=== PATIENT | female | born 1945 | race Caucasian/White ===

== ENCOUNTER 2019-07-08 12:55 | Observation (INO) | payer MEDICARE ==
[2019-07-08] MEDS ORDERED: ASPIRIN 81 MG PO STA (14:11)
[2019-07-08] MEDS ORDERED: SODIUM CHLORIDE 0.9% 500 ML 500 ML IV STA (14:11)
[2019-07-08] MEDS ORDERED: methylPREDNISolone SOD SUCCI 125 MG/2 ML VIAL IV STA (14:11)
[2019-07-08] MEDS ORDERED: FAMOTIDINE 20 MG/2 ML VIAL IV STA (14:12)
--- NOTE | 2019-07-08 14:16 | ED ---
General Adult HPI <Ronnell Martinez - Last Filed: 07/08/19 16:31> - General Source: EMS, RN notes reviewed, old records reviewed Mode of arrival: EMS Limitations: no limitations <Jason Caballero - Last Filed: 07/08/19 16:34> - General Chief complaint: Recheck/Abnormal Lab/Rx Stated complaint: Allergic Reaction Time Seen by Provider: 07/08/19 14:02 - History of Present Illness Initial comments: 73-year-old female patient presents ED chief complaint of possible ALLERGIC reaction secondary to bee sting. Patient reports that approximately 12:00 she was washing windows and she fell a bee pressure against her lateral left lower extremity which then stung her. Patient reports that she felt a lot of pain afterwards. Patient reports that she went over and sat on the bench and had a reported syncopal episode -unknown duration. Patient was then seen by her states that for a period of a few minutes patient was only minimally responsive. called EMS, where they transported her to ED, and administered patient Benadryl, Zofran, fluid bolus. Patient reports that she currently feels nauseous, feels chest tightness, feels lethargic. Patient denies any pain anywhere with exception of stinging from bee sting. Patient denies any chest pain, denies any prior cardiac history. Patient states that she has never had a stress test. Systemic: Pt denies fatigue, fever/chills, rash. Pt denies weakness, night sweats, weight loss. Neuro: Pt denies headache, visual disturbances, syncope or pre-syncope. HEENT: Pt denies ocular discharge or irritation, otalgia, rhinorrhea, pharyngitis or notable lymphadenopathy. Cardiopulmonary: Pt denies chest pain, SOB, heart palpitations, dyspnea on exertion. Abdominal/GI: Pt denies abdominal pain, n/v/d. : Pt denies dysuria, burning w/ urination, frequency/urgency. Denies new onset urinary or bowel incontinence. MSK: Pt denies myalgia, loss of strength or function in extremities. Neuro: Pt denies new onset weakness, paresthesias. (Jason Caballero) - Related Data Home Medications Medication Instructions Recorded Confirmed Ketorolac Tromethamine [Acular LS 1 drop LEFT EYE TID 07/08/19 07/08/19 0.4%] Simvastatin [Zocor] 40 mg PO HS 07/08/19 07/08/19 Allergies Allergy/AdvReac Type Severity Reaction Status Date / Time No Known Allergies Allergy Verified 07/08/19 13:17 Review of Systems ROS Other: All systems not noted in ROS Statement are negative. <Ronnell Martinez - Last Filed: 07/08/19 16:31> ROS Other: All systems not noted in ROS Statement are negative. <Jason Caballero - Last Filed: 07/08/19 16:34> ROS Statement: Those systems with pertinent positive or pertinent negative responses have been documented in the HPI. Past Medical History Past Medical History: Hyperlipidemia Additional Past Medical History / Comment(s): left torn minicus, possible colitis History of Any Multi-Drug Resistant Organisms: None Reported Past Surgical History: Orthopedic Surgery, Tubal Ligation Additional Past Surgical History / Comment(s): cataracts Past Psychological History: No Psychological Hx Reported Smoking Status: Never smoker Past Alcohol Use History: None Reported Past Drug Use History: None Reported <Jason Caballero - Last Filed: 07/08/19 16:34> General Exam Limitations: no limitations <Jason Caballero - Last Filed: 07/08/19 16:34> - General Exam Comments Initial Comments: Constitutional: NAD, AOX3, Pt has pleasant affect. HEENT: NC/AT, trachea midline, neck supple, no lymphadenopathy. Posterior pharynx non erythematous, without exudates. External ears appear normal, without discharge. Mucous membranes moist. Eyes PERRLA, EOM intact. There is no scleral icterus. No pallor noted. Cardiopulmonary: RRR, no murmurs, rubs or gallops, no JVD noted. Lungs CTAB in anterior and posterior rivera. No peripheral edema. Abdominal exam: Abdomen soft and non-distended. Abdomen non-tender to palpation in all 4 quadrants. Bowel sounds active in LLQ. No hepatosplenomegaly. No ecchymosis Neuro: CN II-XII intact. No nuchal rigidity. No raccon eyes, no melo sign, no hemotympanum. No cervical spinal tenderness. NIH 0. MSK: No posterior calf tenderness bilaterally, homans sign negative bilaterally. Posterior tibialis and radial pulse +2 bilaterally. Sensation intact in upper and lower extremities. Full active ROM in upper and lower extremities, 5/5 stregnth. Derm: Urticaria noted in paralumbar region, localized erythema around reported sting on lateral left lower extremity. Improved with steroids, pepcid. (Jason Caballero) Course <Ronnell Martinez - Last Filed: 07/08/19 16:31> Vital Signs 07/08/19 07/08/19 07/08/19 12:59 13:04 14:00 Temperature 97.9 F Pulse Rate 68 68 68 Respiratory 16 Rate Blood Pressure 109/59 O2 Sat by Pulse 97 96 96 Oximetry 07/08/19 07/08/19 15:00 16:00 Temperature Pulse Rate 68 68 Respiratory 15 15 Rate Blood Pressure 111/60 O2 Sat by Pulse 96 96 Oximetry - Reevaluation(s) Reevaluation #1: 07/08/19 16:31 PA supervision: I pursued evaluation of this case and did discuss findings with the patient family as well as Dr. Spence who is agreed to accept the patient for admission. Patient did have a bee sting and later syncopal episode and chest pain it was prolonged. Patient will be evaluated in the hospital cardiology will be consulted. U agree with the assessment and plan (Ronnell Martinez) Medical Decision Making - Lab Data Result diagrams: 07/08/19 14:45 07/08/19 14:45 <Ronnell Martinez - Last Filed: 07/08/19 16:31> - Lab Data Result diagrams: 07/08/19 14:45 07/08/19 14:45 <Jason Caballero - Last Filed: 07/08/19 16:34> - Medical Decision Making 73-year-old female patient presents ED chief complaint of possible ALLERGIC reaction secondary to bee sting. Patient reports that approximately 12:00 she was washing windows and she fell a bee pressure against her lateral left lower extremity which then stung her. Patient reports that she felt a lot of pain afterwards. Patient reports that she went over and sat on the bench and had a reported syncopal episode -unknown duration. Patient was then seen by her states that for a period of a few minutes patient was only minimally responsive. called EMS, where they transported her to ED, and administered patient Benadryl, Zofran, fluid bolus. Patient reports that she currently feels nauseous, feels chest tightness, feels lethargic. Patient denies any pain anywhere with exception of stinging from bee sting. Patient denies any chest pain, denies any prior cardiac history. Patient states that she has never had a stress test. Patient's vital signs stable, afebrile. Physical exam displayed: CN II-XII intact. No nuchal rigidity. No raccon eyes, no melo sign, no hemotympanum. No cervical spinal tenderness. NIH 0. Urticaria noted in paralumbar region, localized erythema around reported sting on lateral left lower extremity. Improved with steroids, pepcid. Laboratory investigations revealed mild leukocytosis, otherwise noncompressive. Troponin negative. EKG not concerning for acute ischemia. CT brain C-spine, chest x-ray did not display acute process. Chest tightness resolved without intervention, lasted approximately 2 hours. Patient will be admitted for syncopal episode, ACS rule out. Case discussed with Dr. Martinez. (Jason Caballero) - Lab Data Lab Results 07/08/19 07/08/19 07/08/19 Range/Units 14:45 14:45 14:45 WBC 12.3 H (3.8-10.6) k/uL RBC 4.47 (3.80-5.40) m/uL Hgb 14.3 (11.4-16.0) gm/dL Hct 42.2 (34.0-46.0) % MCV 94.6 (80.0-100.0) fL MCH 32.0 (25.0-35.0) pg MCHC 33.9 (31.0-37.0) g/dL RDW 13.5 (11.5-15.5) % Plt Count 205 (150-450) k/uL Neutrophils % 85 % Lymphocytes % 9 % Monocytes % 5 % Eosinophils % 0 % Basophils % 0 % Neutrophils # 10.5 H (1.3-7.7) k/uL Lymphocytes # 1.1 (1.0-4.8) k/uL Monocytes # 0.6 (0-1.0) k/uL Eosinophils # 0.0 (0-0.7) k/uL Basophils # 0.0 (0-0.2) k/uL PT 10.0 (9.0-12.0) sec INR 0.9 (<1.2) APTT 18.2 L (22.0-30.0) sec Sodium 141 (137-145) mmol/L Potassium 3.8 (3.5-5.1) mmol/L Chloride 108 H (98-107) mmol/L Carbon Dioxide 25 (22-30) mmol/L Anion Gap 8 mmol/L BUN 17 (7-17) mg/dL Creatinine 0.90 (0.52-1.04) mg/dL Est GFR (CKD-EPI)AfAm 74 (>60 ml/min/1.73 sqM) Est GFR (CKD-EPI)NonAf 64 (>60 ml/min/1.73 sqM) Glucose 103 H (74-99) mg/dL Calcium 9.2 (8.4-10.2) mg/dL Magnesium 2.1 (1.6-2.3) mg/dL Total Bilirubin 0.4 (0.2-1.3) mg/dL AST 19 (14-36) U/L ALT 23 (9-52) U/L Alkaline Phosphatase 75 (38-126) U/L Troponin I (0.000-0.034) ng/mL Total Protein 6.4 (6.3-8.2) g/dL Albumin 3.9 (3.5-5.0) g/dL 07/08/19 Range/Units 14:45 WBC (3.8-10.6) k/uL RBC (3.80-5.40) m/uL Hgb (11.4-16.0) gm/dL Hct (34.0-46.0) % MCV (80.0-100.0) fL MCH (25.0-35.0) pg MCHC (31.0-37.0) g/dL RDW (11.5-15.5) % Plt Count (150-450) k/uL Neutrophils % % Lymphocytes % % Monocytes % % Eosinophils % % Basophils % % Neutrophils # (1.3-7.7) k/uL Lymphocytes # (1.0-4.8) k/uL Monocytes # (0-1.0) k/uL Eosinophils # (0-0.7) k/uL Basophils # (0-0.2) k/uL PT (9.0-12.0) sec INR (<1.2) APTT (22.0-30.0) sec Sodium (137-145) mmol/L Potassium (3.5-5.1) mmol/L Chloride (98-107) mmol/L Carbon Dioxide (22-30) mmol/L Anion Gap mmol/L BUN (7-17) mg/dL Creatinine (0.52-1.04) mg/dL Est GFR (CKD-EPI)AfAm (>60 ml/min/1.73 sqM) Est GFR (CKD-EPI)NonAf (>60 ml/min/1.73 sqM) Glucose (74-99) mg/dL Calcium (8.4-10.2) mg/dL Magnesium (1.6-2.3) mg/dL Total Bilirubin (0.2-1.3) mg/dL AST (14-36) U/L ALT (9-52) U/L Alkaline Phosphatase (38-126) U/L Troponin I <0.012 (0.000-0.034) ng/mL Total Protein (6.3-8.2) g/dL Albumin (3.5-5.0) g/dL Disposition <Ronnell Martinez - Last Filed: 07/08/19 16:31> Is patient prescribed a controlled substance at d/c from ED?: No <Jason Caballero - Last Filed: 07/08/19 16:34> Clinical Impression: Syncopal episodes, Chest pain Disposition: ADMITTED IP TO THIS HOSP Condition: Serious Referrals: Milton Cordoba DO [Primary Care Provider] - 1-2 days
--- NOTE | 2019-07-08 14:44 | XR ---
EXAMINATION TYPE: XR chest 2V DATE OF EXAM: 07/08/2019 COMPARISON: NONE TECHNIQUE: PA and lateral views submitted. HISTORY: Chest pain FINDINGS: The lungs are clear and there is no pneumothorax, pleural effusion, or focal pneumonia. Biapical pl eural thickening. No overt failure. Hypertrophic and degenerative change of the spine. Diffuse osteop enia. IMPRESSION: 1. Biapical pleural thickening greater on the right with no acute infiltrate or overt failure.
--- NOTE | 2019-07-08 14:47 | CT ---
EXAMINATION TYPE: CT brain wo con DATE OF EXAM: 07/08/2019 COMPARISON: None HISTORY: Weakness, dizziness and fatigue CT DLP: 1113.4 mGycm Automated exposure control for dose reduction was used. FINDINGS: Osseous calvarium intact. Ventricular system midline. Mild generalized degenerative change. Partially empty sella turcica. No midline shift or mass effect. No acute intracranial hemorrhage. Mild changes of chronic sinusitis. IMPRESSION: NO ACUTE HEMORRHAGE OR MASS EFFECT. IF THERE IS CONCERN FOR ACUTE ISCHEMIA CORRELATE WITH MRI CLIN ICALLY WARRANTED
[2019-07-08 15:11] LABS: Basophils % (A) 0 %; Eosinophils % (A) 0 %; HCT 42.2 % (34.0-46.0); HGB 14.3 gm/dL (11.4-16.0); Lymphocytes # (A) 1.1 k/uL (1.0-4.8); Lymphocytes % (A) 9 %; MCHC 33.9 g/dL (31.0-37.0); MCV 94.6 fL (80.0-100.0); Mean Platelet Volume 7.8; Monocytes # (A) 0.6 k/uL (0-1.0); Monocytes % (A) 5 %; Neutrophils # (A) 10.5 k/uL (1.3-7.7); Neutrophils % (A) 85 %; Platelet Count 205 k/uL (150-450); RBC 4.47 m/uL (3.80-5.40); RDW 13.5 % (11.5-15.5); WBC 12.3 k/uL (3.8-10.6)
[2019-07-08 15:20] LABS: Albumin 3.9 g/dL (3.5-5.0); Calcium 9.2 mg/dL (8.4-10.2); Magnesium 2.1 mg/dL (1.6-2.3); Potassium 3.8 mmol/L (3.5-5.1); Total Bilirubin 0.4 mg/dL (0.2-1.3); Total Protein 6.4 g/dL (6.3-8.2)
[2019-07-08 15:36] LABS: INR 0.9 (<1.2)
[2019-07-08 15:37] LABS: Partial Thromboplastin Time 18.2 sec (22.0-30.0)
[2019-07-08] MEDS ORDERED: NITROGLYCERIN SL TABS 0.4 MG TAB SUBLINGUAL PRN (16:27)
--- NOTE | 2019-07-08 17:20 | ED ---
Medical Decision Making - Lab Data Result diagrams: 07/08/19 14:45 07/08/19 14:45 Lab Results 07/08/19 07/08/19 07/08/19 Range/Units 14:45 14:45 14:45 WBC 12.3 H (3.8-10.6) k/uL RBC 4.47 (3.80-5.40) m/uL Hgb 14.3 (11.4-16.0) gm/dL Hct 42.2 (34.0-46.0) % MCV 94.6 (80.0-100.0) fL MCH 32.0 (25.0-35.0) pg MCHC 33.9 (31.0-37.0) g/dL RDW 13.5 (11.5-15.5) % Plt Count 205 (150-450) k/uL Neutrophils % 85 % Lymphocytes % 9 % Monocytes % 5 % Eosinophils % 0 % Basophils % 0 % Neutrophils # 10.5 H (1.3-7.7) k/uL Lymphocytes # 1.1 (1.0-4.8) k/uL Monocytes # 0.6 (0-1.0) k/uL Eosinophils # 0.0 (0-0.7) k/uL Basophils # 0.0 (0-0.2) k/uL PT 10.0 (9.0-12.0) sec INR 0.9 (<1.2) APTT 18.2 L (22.0-30.0) sec Sodium 141 (137-145) mmol/L Potassium 3.8 (3.5-5.1) mmol/L Chloride 108 H (98-107) mmol/L Carbon Dioxide 25 (22-30) mmol/L Anion Gap 8 mmol/L BUN 17 (7-17) mg/dL Creatinine 0.90 (0.52-1.04) mg/dL Est GFR (CKD-EPI)AfAm 74 (>60 ml/min/1.73 sqM) Est GFR (CKD-EPI)NonAf 64 (>60 ml/min/1.73 sqM) Glucose 103 H (74-99) mg/dL Calcium 9.2 (8.4-10.2) mg/dL Magnesium 2.1 (1.6-2.3) mg/dL Total Bilirubin 0.4 (0.2-1.3) mg/dL AST 19 (14-36) U/L ALT 23 (9-52) U/L Alkaline Phosphatase 75 (38-126) U/L Troponin I (0.000-0.034) ng/mL Total Protein 6.4 (6.3-8.2) g/dL Albumin 3.9 (3.5-5.0) g/dL 07/08/19 Range/Units 14:45 WBC (3.8-10.6) k/uL RBC (3.80-5.40) m/uL Hgb (11.4-16.0) gm/dL Hct (34.0-46.0) % MCV (80.0-100.0) fL MCH (25.0-35.0) pg MCHC (31.0-37.0) g/dL RDW (11.5-15.5) % Plt Count (150-450) k/uL Neutrophils % % Lymphocytes % % Monocytes % % Eosinophils % % Basophils % % Neutrophils # (1.3-7.7) k/uL Lymphocytes # (1.0-4.8) k/uL Monocytes # (0-1.0) k/uL Eosinophils # (0-0.7) k/uL Basophils # (0-0.2) k/uL PT (9.0-12.0) sec INR (<1.2) APTT (22.0-30.0) sec Sodium (137-145) mmol/L Potassium (3.5-5.1) mmol/L Chloride (98-107) mmol/L Carbon Dioxide (22-30) mmol/L Anion Gap mmol/L BUN (7-17) mg/dL Creatinine (0.52-1.04) mg/dL Est GFR (CKD-EPI)AfAm (>60 ml/min/1.73 sqM) Est GFR (CKD-EPI)NonAf (>60 ml/min/1.73 sqM) Glucose (74-99) mg/dL Calcium (8.4-10.2) mg/dL Magnesium (1.6-2.3) mg/dL Total Bilirubin (0.2-1.3) mg/dL AST (14-36) U/L ALT (9-52) U/L Alkaline Phosphatase (38-126) U/L Troponin I <0.012 (0.000-0.034) ng/mL Total Protein (6.3-8.2) g/dL Albumin (3.5-5.0) g/dL - EKG Data -: EKG Interpreted by Me (and Dr. Martinez ) EKG Comments: Ventricular rate 61, MA interval 148, QRS 86, QT/QTc 444/446. Normal sinus rhythm, normal EKG, no concern for acute ischemia. Disposition Clinical Impression: Syncopal episodes, Chest pain Disposition: ADMITTED IP TO THIS HOSP Condition: Serious Is patient prescribed a controlled substance at d/c from ED?: No Referrals: Milton Cordoba DO [Primary Care Provider] - 1-2 days
[2019-07-09 03:26] LABS: Cholesterol 127 mg/dL (<200); HDL Cholesterol 52 mg/dL (40-60); LDL Cholesterol,Calculated 66 mg/dL (0-99); Triglycerides 43 mg/dL (<150)
--- NOTE | 2019-07-09 08:26 | US ---
EXAMINATION TYPE: US carotid duplex BILAT DATE OF EXAM: 07/09/2019 COMPARISON: NONE CLINICAL HISTORY: Pain. Patient states having a reaction to a bee sting with chest tightness, no HTN, no hx of TIA EXAM MEASUREMENTS: RIGHT: Peak Systolic Velocity (PSV) cm/sec ----- Right CCA: 88.6 ----- Right ICA: 84.2 ----- Right ECA: 101.6 ICA/CCA ratio: 1.0 RIGHT: End Diastole cm/sec ----- Right CCA: 17.1 ----- Right ICA: 27.0 ----- Right ECA: 0.0 LEFT: Peak Systolic Velocity (PSV) cm/sec ----- Left CCA: 100.0 ----- Left ICA: 77.9 ----- Left ECA: 93.5 ICA/CCA ratio: 0.8 LEFT: End Diastole cm/sec ----- Left CCA: 23.3 ----- Left ICA: 29.6 ----- Left ECA: 11.1 VERTEBRALS (direction of flow): Right Vertebral: Antegrade Left Vertebral: Antegrade Rhythm: Normal Grayscale images show no significant focal plaque at carotid bulb level bilaterally. Velocity measure ments and ratios in the visualized portions of both internal carotid arteries is within normal limits . IMPRESSION: No hemodynamically significant stenosis is seen in either internal carotid artery. Criteria for Assigning % of Stenosis / Diameter reduction (Estimation based on the indirect measurements of the internal carotid artery velocities (ICA PSV). 1. Normal (no stenosis)=ICA PSV < 125 cm/s: ratio < 2.0: ICA EDV<40 cm/s. 2. Less than 50% stenosis=ICA PSV < 125 cm/s: ratio < 2.0: ICA EDV<40 cm/s. 3. 50 to 69% stenosis=ICA PSV of 125 to 230 cm/s: ration 2.0 ? 4.0: ICA EDV 40-100 cm/s. 4. Greater than 70% stenosis to near occlusion= ICA PSV > 230 cm/s: ratio > 4.0: ICA EDV > 100 cm/s. 5. Near occlusion= ICA PSV velocities may be low or undetectable: variable ratio and ICA EDV. 6. Total occlusion=unable to detect flow.
[2019-07-09] MEDS ORDERED: ASPIRIN 325 MG TAB PO SCH (09:00)
--- NOTE | 2019-07-09 10:38 | CT ---
EXAMINATION TYPE: CT angio chest DATE OF EXAM: 07/09/2019 COMPARISON: Chest x-ray from yesterday. HISTORY: Chest tightness, elevated d dimer, syncopal episode post bee sting CT DLP: 300.2 mGycm. Automated Exposure Control for Dose Reduction was Utilized. CONTRAST: CTA scan of the thorax is performed with IV Contrast, patient injected with 69 mL of Isovue 370, pulm onary embolism protocol. MIP Images are created on CT scanner and reviewed. FINDINGS: LUNGS: Mild to moderate biapical pleural/parenchymal scarring is redemonstrated. There is dependent a telectasis bilateral lower lobes. No suspicious focal consolidation is seen. No pleural effusion or p neumothorax is noted. There is fat density 9 mm right basilar nodule axial image 98 presumed benign. MEDIASTINUM: There is satisfactory enhancement of the pulmonary artery and its branches, there is no CT evidence for pulmonary embolism. There is prominent prevascular 10 x 10 mm lymph node axial image 38. No definitive greater than 1 cm lymph nodes. Prominent but subcentimeter 9 x 6 mm lymph node ant erior to the main pulmonary artery axial image 62 is noted . Prominent left hilar lymph node image 64 is noted. No cardiomegaly or pericardial effusion is seen. OTHER: Small hiatal hernia is present. [id number] multilevel spurring in the thoracic spine is seen. IMPRESSION: No CT evidence for acute pulmonary embolism. No suspicious acute pulmonary process.
[2019-07-09] MEDS ORDERED: predniSONE 20 MG TAB PO SCH (11:30)
[2019-07-09] MEDS ORDERED: SODIUM CHLORIDE 0.9% 1,000 ML IV SCH (11:30)
[2019-07-09 12:26] VITALS: RESP 17
--- NOTE | 2019-07-09 13:40 | P.CRDCN ---
History of Present Illness History of present illness: This is a pleasant 73-year-old female with past medical history significant for dyslipidemia maintained on atorvastatin. She denies history of hypertension, diabetes mellitus, coronary artery disease and does not follow with a organizational research consultant for any reason. We have been asked to see her in consultation secondary to a syncopal spell. She states yesterday around 12:30 in the afternoon she was stung on the left thigh by a bee while she was outside cleaning windows. She went in the house to put some ice on the area. She was walking back outside finished washing her windows when she started feeling acutely dizzy. She sat down on a bench to catch her bearings and apparently passed out. She does not recall what happened only that her found her passed out on the bench. She denies having any symptoms of chest discomfort, shortness of breath, palpitations, nausea, vomiting or diaphoresis. In route to the hospital she did have one episode of vomiting. While she was in the emergency department she started to develop a generalized rash around her body described as red and very itchy. Determined to be hives. During that episode she had a tight sensation in the midsternal region. The rash, itching and chest discomfort lasted for a couple of hours and ultimately subsided after receiving Benadryl and IV Solu-Medrol. She is seen and examined resting comfortably in bed in no acute distress. She denies any active symptoms of chest discomfort. There is been no further syncope. EKG reveals sinus mechanism with no acute ST-T wave abnormalities noted. Chest x-ray is negative for an acute cardiopulmonary process with evidence of pleural thickening. CT angios chest negative for pulmonary embolism. Laboratory data reviewed, WBC 12.3, hemoglobin 14.3, d-dimer 3.78, sodium 141, potassium 3.8, creatinine 0.9, magnesium 2.1, cardiac enzymes negative 3, LDL 66. Current cardiac medications include atorvastatin 40 mg daily. At the time of my exam: CONSTITUTIONAL: Denies fever. Denies chills. EYES: Denies blurred vision. Denies vision changes. Denies eye pain. EARS, NOSE, MOUTH & THROAT: Denies headache. Denies sore throat. Denies ear pain. CARDIOVASCULAR: Denies chest pain. Denies shortness of breath. Denies orthopnea. Denies PND. Denies palpitations. RESPIRATORY: Denies cough. GASTROINTESTINAL: Denies abdominal pain. Denies diarrhea. Denies constipation. Denies nausea. Denies vomiting. MUSCULOSKELETAL: Denies myalgias. INTEGUMENTARY: Denies pruitis. Denies rash. NEUROLOGIC: Denies numbness. Denies tingling. Denies weakness. PSYCHIATRIC: Denies anxiety. Denies depression. ENDOCRINE: Denies fatigue. Denies weight change. Denies polydipsia. Denies polyurina. GENITOURINARY: Denies burning, hematuria or urgency with micturation. HEMATOLOGIC: Denies history of anemia. Denies bleeding. Blood pressure 93/49 heart rate 71 afebrile maintaining oxygen saturation on room air GENERAL: This is a 73-year-old female in no apparent distress at the time of my examination. HEENT: Head is atraumatic, normocephalic. Pupils are equal, round. Sclerae anicteric. Conjunctivae are clear. Mucous membranes of the mouth are moist. Neck is supple. There is no jugular venous distention. No carotid bruit is heard. LUNGS: Clear to auscultation no wheezes, rales or rhonchi. No chest wall tenderness is noted on palpation or with deep breathing. HEART: Regular rate and rhythm without murmurs, rubs or gallops. S1 and S2 heard. ABDOMEN: Soft, nontender. Bowel sounds are heard. No organomegaly noted. EXTREMITIES: No evidence of peripheral edema and no calf tenderness noted. Trace area of erythema noted to the left lateral knee. VASCULAR: Radial and dorsalis pedis pulses palpated, no evidence of clubbing. NEUROLOGIC: Patient is awake, alert and oriented x3. ASSESSMENT Syncope ALLERGIC reaction secondary to bee sting Dyslipidemia PLAN An acute coronary event has been ruled out. Obtain 2-D echocardiogram and Doppler study to assess cardiac structure and function. Initiate and prednisone 20 mg twice a day, dose to be tapered discharge. Ongoing telemetry monitoring for another 24 hours to assess for an acute arrhythmia. Thank you kindly for this consultation. Nurse Practitioner note has been reviewed, I agree with a documented findings and plan of care. Patient was seen and examined. Past Medical History Past Medical History: Hyperlipidemia Additional Past Medical History / Comment(s): left torn minicus, possible colitis History of Any Multi-Drug Resistant Organisms: None Reported Past Surgical History: Orthopedic Surgery, Tubal Ligation Additional Past Surgical History / Comment(s): cataracts Past Anesthesia/Blood Transfusion Reactions: Previous Problems w/ Anesthesia Additional Past Anesthesia/Blood Transfusion Reaction / Comment(s): low blood pressure Past Psychological History: No Psychological Hx Reported Smoking Status: Never smoker Past Alcohol Use History: None Reported Past Drug Use History: None Reported Medications and Allergies Home Medications Medication Instructions Recorded Confirmed Type Ketorolac Tromethamine [Acular LS 1 drop LEFT EYE TID 07/08/19 07/08/19 History 0.4%] Simvastatin [Zocor] 40 mg PO HS 07/08/19 07/08/19 History Allergies Allergy/AdvReac Type Severity Reaction Status Date / Time No Known Allergies Allergy Verified 07/08/19 20:57 Physical Exam Vitals: Vital Signs Temp Pulse Pulse Resp BP BP Pulse Ox 07/09/19 07:42 98 F 65 18 96/60 98 07/09/19 04:15 98.4 F 66 18 91/56 98 07/09/19 03:29 18 07/08/19 23:21 98.4 F 77 18 97/57 97 07/08/19 20:00 98.3 F 69 18 101/50 94 L 07/08/19 19:54 87 14 126/58 98 07/08/19 19:48 88 14 126/58 96 07/08/19 16:00 68 15 111/60 96 07/08/19 15:00 68 15 96 07/08/19 14:00 68 96 07/08/19 13:04 68 96 07/08/19 12:59 97.9 F 68 16 109/59 97 Intake and Output 07/08/19 07/09/19 07/09/19 22:59 06:59 14:59 Intake Total 0 Balance 0 Intake: Oral 0 Results 07/08/19 14:45 07/08/19 14:45 Cardiac Enzymes 07/08/19 07/08/19 07/08/19 Range/Units 14:45 14:45 20:35 AST 19 (14-36) U/L Troponin I <0.012 <0.012 (0.000-0.034) ng/mL 07/09/19 Range/Units 02:58 AST (14-36) U/L Troponin I <0.012 (0.000-0.034) ng/mL Coagulation 07/08/19 Range/Units 14:45 PT 10.0 (9.0-12.0) sec APTT 18.2 L (22.0-30.0) sec Lipids 07/09/19 Range/Units 02:58 Triglycerides 43 (<150) mg/dL Cholesterol 127 (<200) mg/dL HDL Cholesterol 52 (40-60) mg/dL CBC 07/08/19 Range/Units 14:45 WBC 12.3 H (3.8-10.6) k/uL RBC 4.47 (3.80-5.40) m/uL Hgb 14.3 (11.4-16.0) gm/dL Hct 42.2 (34.0-46.0) % Plt Count 205 (150-450) k/uL Comprehensive Metabolic Panel 07/08/19 Range/Units 14:45 Sodium 141 (137-145) mmol/L Potassium 3.8 (3.5-5.1) mmol/L Chloride 108 H (98-107) mmol/L Carbon Dioxide 25 (22-30) mmol/L BUN 17 (7-17) mg/dL Creatinine 0.90 (0.52-1.04) mg/dL Glucose 103 H (74-99) mg/dL Calcium 9.2 (8.4-10.2) mg/dL AST 19 (14-36) U/L ALT 23 (9-52) U/L Alkaline Phosphatase 75 (38-126) U/L Total Protein 6.4 (6.3-8.2) g/dL Albumin 3.9 (3.5-5.0) g/dL Current Medications Generic Name Dose Route Start Last Admin Trade Name Inna PRN Reason Stop Dose Admin Aspirin 325 mg 07/09/19 09:00 Aspirin PO DAILY SERENE Nitroglycerin 0.4 mg 07/08/19 16:27 Nitrostat SUBLINGUAL Q5M PRN Chest Pain Intake and Output 07/08/19 07/09/19 07/09/19 22:59 06:59 14:59 Intake Total 0 Balance 0 Intake: Oral 0 07/08/19 14:45 07/08/19 14:45
[2019-07-09] MEDS: KETOROLAC 0.5% OPHTH DROPS 5 ML BTL LEFT EYE SCH ×2 (13:48→18:13)
--- NOTE | 2019-07-09 15:00 | ECHOF ---
Referral Reason:chest pain MEASUREMENTS -------- HEIGHT: 165.1 cm WEIGHT: 75.7 kg BP: 91/56 RVIDd: 2.8 cm (< 3.3) IVSd: 1.1 cm (0.6 - 1.1) LVIDd: 4.1 cm (3.9 - 5.3) LVPWd: 1.0 cm (0.6 - 1.1) IVSs: 1.8 cm LVIDs: 2.4 cm LVPWs: 1.4 cm LA Diam: 3.3 cm (2.7 - 3.8) LAESV Index (A-L): 17.65 ml/m Ao Diam: 2.9 cm (2.0 - 3.7) AV Cusp: 2.2 cm (1.5 - 2.6) MV EXCURSION: 10.716 mm (> 18.000) MV EF SLOPE: 59 mm/s (70 - 150) EPSS: 0.5 cm MV E Sebastian: 0.85 m/s MV DecT: 265 ms MV A Sebastian: 0.87 m/s MV E/A Ratio: 0.98 RAP: 5.00 mmHg RVSP: 24.18 mmHg FINDINGS -------- Sinus rhythm. This was a technically good study. The left ventricular size is normal. There is borderline concentric left ventricular hypertrophy. Overall left ventricular systolic function is normal with, an EF between 60 - 65 %. The right ventricle is normal in size. The left atrial size is normal. The right atrium is normal in size. Interatrial and interventricular septum intact. The aortic valve is trileaflet and appears structurally normal. Trace to mild aortic regurgitation. Mild mitral regurgitation is present. Mild tricuspid regurgitation present. Right ventricular systolic pressure is normal at < 35 mmHg. Trace/mild (physiologic) pulmonic regurgitation. The aortic root size is normal. Normal inferior vena cava with normal inspiratory collapse consistent with estimated right atrial pre ssure of 5 mmHg. There is no pericardial effusion. CONCLUSIONS -------- 1. Sinus rhythm. 2. This was a technically good study. 3. The left ventricular size is normal. 4. There is borderline concentric left ventricular hypertrophy. 5. Overall left ventricular systolic function is normal with, an EF between 60 - 65 %. 6. The right ventricle is normal in size. 7. The left atrial size is normal. 8. The right atrium is normal in size. 9. Interatrial and interventricular septum intact. 10. The aortic valve is trileaflet and appears structurally normal. 11. Trace to mild aortic regurgitation. 12. Mild mitral regurgitation is present. 13. Mild tricuspid regurgitation present. 14. Right ventricular systolic pressure is normal at < 35 mmHg. 15. Trace/mild (physiologic) pulmonic regurgitation. 16. The aortic root size is normal. 17. Normal inferior vena cava with normal inspiratory collapse consistent with estimated right atrial pressure of 5 mmHg. 18. There is no pericardial effusion. RESOURCE MANAGER: Ericka Lincoln RDCS
[2019-07-09] MEDS ORDERED: ENOXAPARIN 40 MG/0.4 ML SYRINGE SQ SCH (16:30)
--- NOTE | 2019-07-09 16:33 | P.HPIM ---
History of Present Illness H&P Date: 07/09/19 Chief Complaint: Dizzy History of presenting complaint: This is a very pleasant 73-year-old patient of Dr. Klaus Mancilla. Patient was working in her garden yesterday when she is at least the walker be staying just below the left knee on the anterior part of the leg. Patient push it away. Patient became quite drowsy. Next thing patient remembers and what she was told is that she was sitting on a bench drowsy lethargic. She was seen by her . Not sure how long she was there. EMS was called. Patient was pale, clammy, patient did vomit once. Patient did complain of chest tightness. It was sometime before she came around. In the EMS she was given about 700 mL of fluid, 50 mg of IV Benadryl IV Zofran. Telemetry showed normal sinus rhythm. Upon arrival in the ER she was given aspirin, IV Solu-Medrol 125 mg, IV Pepcid. Patient had also developed hives on the extremities chest wall. Overnight the symptoms greatly improved and resolved. When I saw the patient earlier today she was feeling well. at the bedside and neighbors are present. Tasha garrido of the near-syncope cardiology was consulted. Review of systems: GEN.: Tired EYES: None HEENT: None NECK: None RESPIRATORY: As above CARDIOVASCULAR: As above GASTROINTESTINAL: None GENITOURINARY: None MUSCULOSKELETAL: None LYMPHATICS: None HEMATOLOGICAL: None PSYCHIATRY: None NEUROLOGICAL: As above DERMATOLOGICAL: Hives/rash Social history: Does not smoke. No alcohol. . Family history: Reviewed, noncontributory to presentation Physical examination: VITAL SIGNS: 97.9, 68, 16, 109/59, 97% room air GENERAL: Average built, sitting up, comfortable. EYES: Pupils equal. Conjunctiva normal. HEENT: External appearance of nose and ears normal, oral cavity grossly normal. NECK: JVD not raised; masses not palpable. HEART: First and second heart sounds are normal; no edema. LUNGS: Respiratory rate normal; clear to auscultation. ABDOMEN: Soft, nontender, liver spleen not palpable, no masses palpable. PSYCH: Alert and oriented x3; mood and affect normal. NEUROLOGICAL: Cranial nerves grossly intact; no facial asymmetry, power and sensation grossly intact. LYMPHATICS: No lymph nodes palpable in the axilla and neck DERMATOLOGICAL: Faint rash at the site of the left leg anteriorly below the knee Assessment: -Acute systemic anaphylactic reaction secondary to witnessed Bee sting. Patient's symptoms included chest tightness, near-syncope, being pale, clammy and vomiting. Patient did receive IV Solu-Medrol, H1 and H2 neda and IV fluids and he did respond to the same. -Hyperlipidemia -No evidence of arrhythmia since been in the hospital Plan: Patient be switched over to oral steroid external H2 neda. He is clinically doing much better. Washed with telemetry. Discussed at length with the patient and family. Spoke to Kanchan ESPITIA from cardiology. If patient remains stable with no further arrhythmia patient to be discharged home later this evening. Patient nearly back to her baseline. No further cardiac or pulmonary symptoms.. Past Medical History Past Medical History: Hyperlipidemia Additional Past Medical History / Comment(s): left torn minicus, possible colitis History of Any Multi-Drug Resistant Organisms: None Reported Past Surgical History: Orthopedic Surgery, Tubal Ligation Additional Past Surgical History / Comment(s): cataracts Past Anesthesia/Blood Transfusion Reactions: Previous Problems w/ Anesthesia Additional Past Anesthesia/Blood Transfusion Reaction / Comment(s): low blood pressure Past Psychological History: No Psychological Hx Reported Smoking Status: Never smoker Past Alcohol Use History: None Reported Past Drug Use History: None Reported Medications and Allergies Home Medications Medication Instructions Recorded Confirmed Type Ketorolac Tromethamine [Acular LS 1 drop LEFT EYE TID 07/08/19 07/08/19 History 0.4%] Simvastatin [Zocor] 40 mg PO HS 07/08/19 07/08/19 History Allergies Allergy/AdvReac Type Severity Reaction Status Date / Time No Known Allergies Allergy Verified 07/08/19 20:57 Physical Exam Vitals: Vital Signs Temp Pulse Pulse Resp BP BP Pulse Ox 07/09/19 07:42 98 F 65 18 96/60 98 07/09/19 04:15 98.4 F 66 18 91/56 98 07/09/19 03:29 18 07/08/19 23:21 98.4 F 77 18 97/57 97 07/08/19 20:00 98.3 F 69 18 101/50 94 L 07/08/19 19:54 87 14 126/58 98 07/08/19 19:48 88 14 126/58 96 07/08/19 16:00 68 15 111/60 96 07/08/19 15:00 68 15 96 07/08/19 14:00 68 96 07/08/19 13:04 68 96 07/08/19 12:59 97.9 F 68 16 109/59 97 Intake and Output 07/08/19 07/09/19 07/09/19 22:59 06:59 14:59 Intake Total 0 Balance 0 Intake: Oral 0 Other: Voiding Method Toilet # Voids 1 Results CBC & Chem 7: 07/08/19 14:45 07/08/19 14:45 Labs: Abnormal Lab Results - Last 24 Hours (Table) 07/08/19 07/08/19 07/08/19 Range/Units 14:45 14:45 14:45 WBC 12.3 H (3.8-10.6) k/uL Neutrophils # 10.5 H (1.3-7.7) k/uL APTT 18.2 L (22.0-30.0) sec D-Dimer (<0.60) mg/L FEU Chloride 108 H (98-107) mmol/L Glucose 103 H (74-99) mg/dL 07/09/19 Range/Units 09:25 WBC (3.8-10.6) k/uL Neutrophils # (1.3-7.7) k/uL APTT (22.0-30.0) sec D-Dimer 3.78 H (<0.60) mg/L FEU Chloride (98-107) mmol/L Glucose (74-99) mg/dL Thrombosis Risk Factor Assmnt - Choose All That Apply Any of the Below Risk Factors Present?: Yes Each Factor Represents 1 point: Age 41-60 years Other Risk Factors: No Other congenital or acquired thrombophilia - If yes, enter type in comment: No Thrombosis Risk Factor Assessment Total Risk Factor Score: 1 Thrombosis Risk Factor Assessment Level: Low Risk
--- NOTE | 2019-07-09 16:49 | P.DS ---
Providers Date of admission: 07/08/19 16:31 Expected date of discharge: 07/09/19 Attending physician: Brant Spence Consults: 07/08/19 16:27 Consult Physician Urgent Consulting Provider: [facility] Consult Reason/Comments: allergic reaction, chest pain, syncpe Do you want consulting provider notified?: Yes Primary care physician: Milton Enrique [facility] Course: Final diagnosis: -Acute systemic anaphylactic reaction secondary to witnessed Bee sting. Patient's symptoms included chest tightness, near-syncope, being pale, clammy and vomiting. Patient did receive IV Solu-Medrol, H1 and H2 neda and IV fluids and he did respond to the same. -Hyperlipidemia -No evidence of arrhythmia Consultation: Dr. VC Cao from cardiology Hospital course: This is a very pleasant 73-year-old patient of Dr. Klaus Mancilla. Patient was working in her garden yesterday when she is at least the walker be staying just below the left knee on the anterior part of the leg. Patient push it away. Patient became quite drowsy. Next thing patient remembers and what she was told is that she was sitting on a bench drowsy lethargic. She was seen by her . Not sure how long she was there. EMS was called. Patient was pale, clammy, patient did vomit once. Patient did complain of chest tightness. It was sometime before she came around. In the EMS she was given about 700 mL of fluid, 50 mg of IV Benadryl IV Zofran. Telemetry showed normal sinus rhythm. Upon arrival in the ER she was given aspirin, IV Solu-Medrol 125 mg, IV Pepcid. Patient had also developed hives on the extremities chest wall. Overnight the symptoms greatly improved and resolved. When I saw the patient earlier today she was feeling well. at the bedside and neighbors are present. Because of the near-syncope cardiology was consulted. Patient by the time of discharge is doing well. No arrhythmia. Symptoms are completely resolved. Care was discussed the patient has been. On examination: Vital signs stable Lungs are clear Cardiovascular first seconds normal Investigations: Chest CTA negative for PE 2-D echo shows preserved LV function EKG tracing-normal sinus rhythm Carotid Doppler-negative Computed tomography scan brain negative Disposition: Home Patient Condition at Discharge: Serious Plan - Discharge Summary New Discharge Prescriptions: New diphenhydrAMINE [Benadryl] 25 mg PO DIRECTED #9 capsule Famotidine [Pepcid] 20 mg PO BID #6 tablet predniSONE 0 mg PO DIRECTED #10 tab Continue Simvastatin [Zocor] 40 mg PO HS Ketorolac Tromethamine [Acular LS 0.4%] 1 drop LEFT EYE TID Discharge Medication List Ketorolac Tromethamine [Acular LS 0.4%] 1 drop LEFT EYE TID 07/08/19 [History] Simvastatin [Zocor] 40 mg PO HS 07/08/19 [History] Famotidine [Pepcid] 20 mg PO BID #6 tablet 07/09/19 [Rx] diphenhydrAMINE [Benadryl] 25 mg PO DIRECTED #9 capsule 07/09/19 [Rx] predniSONE 0 mg PO DIRECTED #10 tab 07/09/19 [Rx] Follow up Appointment(s)/Referral(s): Milton Cordoba DO [Primary Care Provider] - 1-2 Days Activity/Diet/Wound Care/Special Instructions: Ambulate patient. If telemetry remains negative. DC after 5 PM
[2019-07-09 17:22] VITALS: BP 108/67; PULSE 63; TEMP 98.7
[2019-07-09] MEDS ORDERED: ATORVASTATIN 20 MG TAB PO SCH (21:00)
== END 2019-07-09 18:50 ==
LOC: EC 12:55 → 1SOBS 16:31
PROVIDERS: ADMIT Hospitalist; ATTEND Hospitalist
DX: T78.2XXA Anaphylactic shock, unspecified, initial encounter (principal); T63.441A Toxic effect of venom of bees, accidental (unintentional), initial encounter; R55 Syncope and collapse; R23.1 Pallor; E78.5 Hyperlipidemia, unspecified; R40.0 Somnolence; R53.83 Other fatigue; R07.89 Other chest pain; D72.829 Elevated white blood cell count, unspecified; Z79.1 Long term (current) use of non-steroidal anti-inflammatories (NSAID); Z79.899 Other long term (current) drug therapy; Y92.096 Garden or yard of other non-institutional residence as the place of occurrence of the external cause
CPT/HCPCS: 96372; 96361; 96374; 96375; 99285; 36415; 93005; 93306; 85379; 80061; 80053; 83735; 84484 ×2; 85025; 85610; 85730; 71046; 93880; 70450; 71275; G0378 ×2; J2930; J1650; J7512; Q9967

== ENCOUNTER 2024-07-31 15:39 | Emergency (ER) | payer MEDICARE ==
[2024-07-31 15:51] VITALS: RESP 18
--- NOTE | 2024-07-31 16:04 | ED ---
Abdominal Pain HPI - General Source: patient, RN notes reviewed Mode of arrival: ambulatory Limitations: no limitations <Yamila Shelby - Last Filed: 07/31/24 16:02> - General Source: patient, RN notes reviewed, old records reviewed Mode of arrival: ambulatory Limitations: no limitations - History of Present Illness MD Complaint: abdominal pain -: days(s) Location: RUQ Radiation: RUQ Severity: moderate Severity scale (1-10): 7 Quality: fullness Consistency: constant Improves With: nothing Worsens With: nothing Associated Symptoms: nausea, vomiting Treatments Prior to Arrival: other (0) <Sriram Camacho - Last Filed: 08/12/24 15:59> - General Chief Complaint: Abdominal Pain Stated Complaint: abd pain Time Seen by Provider: 07/31/24 16:00 - History of Present Illness Initial Comments: Quick Note: This is a 78-year-old female who presents to the emergency department for abdominal pain. Patient states that she has been dealing with pain in the right flank and right upper quadrant region. She had been constipated and gave herself an enema and the symptoms resolved. However, she went to urgent care today and they were concerned that she may have gallstones and she was sent to the emergency department for further evaluation of this. (Yamila Shelby) This is a 78-year-old female to the ER for evaluation abdominal pain. Patient has slight pain back pain constipation and persistent pain here in the ER (Sriram Camacho) - Related Data Home Medications Medication Instructions Recorded Confirmed Ketorolac Tromethamine [Acular LS 1 drop LEFT EYE TID 07/08/19 07/08/19 0.4%] Simvastatin [Zocor] 40 mg PO HS 07/08/19 07/08/19 Previous Rx's Medication Instructions Recorded Famotidine [Pepcid] 20 mg PO BID #6 tablet 07/09/19 diphenhydrAMINE [Benadryl] 25 mg PO DIRECTED #9 capsule 07/09/19 predniSONE 0 mg PO DIRECTED #10 tab 07/09/19 Allergies Allergy/AdvReac Type Severity Reaction Status Date / Time No Known Allergies Allergy Verified 07/31/24 15:51 Review of Systems ROS Other: All systems not noted in ROS Statement are negative. <Yamila Shelby - Last Filed: 07/31/24 16:02> ROS Other: All systems not noted in ROS Statement are negative. <Sriram Camacho - Last Filed: 08/12/24 15:59> ROS Statement: Those systems with pertinent positive or pertinent negative responses have been documented in the HPI. Past Medical History Past Medical History: Hyperlipidemia Additional Past Medical History / Comment(s): left torn minicus, possible colitis History of Any Multi-Drug Resistant Organisms: None Reported Past Surgical History: Orthopedic Surgery, Tubal Ligation Additional Past Surgical History / Comment(s): cataracts Past Anesthesia/Blood Transfusion Reactions: Previous Problems w/ Anesthesia Additional Past Anesthesia/Blood Transfusion Reaction / Comment(s): low blood pressure Past Psychological History: No Psychological Hx Reported Past Alcohol Use History: None Reported Past Drug Use History: None Reported <Yamila Shelby - Last Filed: 07/31/24 16:02> General Exam Limitations: no limitations <Dia Shelbyian - Last Filed: 07/31/24 16:02> General appearance: alert, in no apparent distress, anxious Head exam: Present: atraumatic, normocephalic, normal inspection Eye exam: Present: normal appearance, PERRL, EOMI. Absent: scleral icterus, conjunctival injection, periorbital swelling ENT exam: Present: normal exam, mucous membranes moist Neck exam: Present: normal inspection. Absent: tenderness, meningismus, lymphadenopathy Respiratory exam: Present: normal lung sounds bilaterally. Absent: respiratory distress, wheezes, rales, rhonchi, stridor Cardiovascular Exam: Present: regular rate, normal rhythm, normal heart sounds. Absent: systolic murmur, diastolic murmur, rubs, gallop, clicks GI/Abdominal exam: Present: soft, normal bowel sounds. Absent: distended, tenderness, guarding, rebound, rigid Extremities exam: Present: normal inspection, full ROM, normal capillary refill. Absent: tenderness, pedal edema, joint swelling, calf tenderness Back exam: Present: normal inspection Neurological exam: Present: alert, oriented X3, CN II-XII intact Psychiatric exam: Present: normal affect, normal mood Skin exam: Present: warm, dry, intact, normal color. Absent: rash <Sriram Camacho - Last Filed: 08/12/24 15:59> - General Exam Comments Initial Comments: Visual Physical Exam Vital signs reviewed General: Well-appearing, nontoxic, no acute distress. Head: Normocephalic, atraumatic Eyes: PERRLA, EOMI ENT: Airway patent Chest: Nonlabored breathing Skin: No visual rash, normal skin tone Neuro: Alert and oriented 3 Musculoskeletal: No gross abnormalities (Yamila Shelby) Course <Sriram Camacho - Last Filed: 08/12/24 15:59> Vital Signs 07/31/24 07/31/24 15:47 19:48 Temperature 97.7 F 98.6 F Pulse Rate 73 64 Respiratory 18 18 Rate Blood Pressure 121/59 148/65 O2 Sat by Pulse 98 96 Oximetry - Reevaluation(s) Reevaluation #1: Medical records reviewed (Sriram Camacho) Reevaluation #2: Patient symptoms improved (Sriram Camacho) Reevaluation #3: Patient informed of results and questions answered (Sriram Camacho) Reevaluation #4: Was pt. sent in by a medical professional or institution (, PA, [employer], urgent care, hospital, or halfway...) When possible be specific @ -no Did you speak to anyone other than the patient for history (EMS, parent, family, police, friend...)? What history was obtained from this source @ -no Did you review nursing and triage notes (agree or disagree)? Why? @ -agree Are old charts reviewed (outside hosp., previous admission, EMS record, old EKG, old radiological studies, urgent care reports/EKG's, halfway records)? Report findings @ -yes Differential Diagnosis (chest pain, altered mental status, abdominal pain women, abdominal pain men, vaginal bleeding, weakness, fever, dyspnea, syncope, headache, dizziness, GI bleed, back pain, seizure, CVA, palpatations, mental health, musculoskeletal)? @ -prior EKG interpreted by me (3pts min.). @ -yes X-rays interpreted by me (1pt min.). @ -no CT interpreted by me (1pt min.). @ -yes negative for acute disease U/S interpreted by me (1pt. min.). @ -yes negative for acute disease What testing was considered but not performed or refused? (CT, X-rays, U/S, labs)? Why? @ -none What meds were considered but not given or refused? Why? @ -none Did you discuss the management of the patient with other professionals (professionals i.e. , PA, [employer], lab, RT, psych nurse, oncology social worker, humanities department chair, teacher, evp chief exploration officer, keycase assembler)? Give summary @ -no Was smoking cessation discussed for >3mins.? @ -no Was critical care preformed (if so, how long)? @ -no Were there social determinants of health that impacted care today? How? (Homelessness, low income, unemployed, alcoholism, drug addiction, transportation, low edu. Level, literacy, decrease access to med. care, [facility], rehab)? @ -none Was there de-escalation of care discussed even if they declined (Discuss DNR or withdrawal of care, Hospice)? DNR status @ -no What co-morbidities impacted this encounter? (DM, HTN, Smoking, COPD, CAD, Cancer, CVA, ARF, Chemo, Hep., AIDS, mental health diagnosis, sleep apnea, morbid obesity)? @ -none Was patient admitted / discharged? Hospital course, mention meds given and route, prescriptions, significant lab abnormalities, going to OR and other pertinent info. @ - 78 female to ER for evaluation abdominal pain nonspecific abdominal pain ultrasound and CT scan and lab test are negative patient can be discharged home Discharge Undiagnosed new problem with uncertain prognosis? @ -no Drug Therapy requiring intensive monitoring for toxicity (Heparin, Nitro, Insulin, Cardizem)? @ -no Were any procedures done? @ -no Diagnosis/symptom? @ -Abdominal pain Acute, or Chronic, or Acute on Chronic? @ -Acute Uncomplicated (without systemic symptoms) or Complicated (systemic symptoms)? @ -Complicated Side effects of treatment? @ -no Exacerbation, Progression, or Severe Exacerbation? @ -exacerbation Poses a threat to life or bodily function? How? (Chest pain, [place], [place], pneumonia, PE, COPD, DKA, ARF, appy, cholecystitis, CVA, Diverticulitis, Homicidal, Suicidal, threat to staff... and all critical care pts) @ -yes (Sriram Camacho) Reevaluation #5: Differential Abdominal Pain Women: Appendicitis, Cholecystitis, diverticulosis, ischemic bowel, pancreatitis, hepatitis, UTI, gastroenteritis, AAA, incarcerated hernia, bowel obstruction, c onstipation, inflammatory bowel, hepatitis, peptic ulcer disease, splenic infarction, perforated viscus, vulvitis, ovarian torsion, PID, kidney stone, placenta abruption, this is not meant to be an all-inclusive list (Sriram Camacho) Medical Decision Making <Yamila Shelby - Last Filed: 07/31/24 16:02> - Lab Data Result diagrams: 07/31/24 17:31 07/31/24 17:31 - Radiology Data Radiology results: report reviewed (USound of the gallbladder and CT abdomen pelvis negative for acute disease), image reviewed <Sriram Camacho - Last Filed: 08/12/24 15:59> - Medical Decision Making I performed the QuickNote portion of this chart. Signed Yamila Shelby PA-C. (Yamila Shelby) 78 female to ER for evaluation abdominal pain nonspecific abdominal pain ultrasound and CT scan and lab test are negative patient can be discharged home (Sriram Camacho) - Lab Data Lab Results 07/31/24 07/31/24 07/31/24 Range/Units 16:36 17:31 17:31 WBC 7.9 (3.8-10.6) k/uL RBC 4.26 (3.80-5.40) m/uL Hgb 13.5 (11.4-16.0) gm/dL Hct 41.3 (34.0-46.0) % MCV 96.9 (80.0-100.0) fL MCH 31.7 (25.0-35.0) pg MCHC 32.7 (31.0-37.0) g/dL RDW 12.2 (11.5-15.5) % Plt Count 219 (150-450) k/uL MPV 8.2 Neutrophils % 66 % Lymphocytes % 23 % Monocytes % 6 % Eosinophils % 2 % Basophils % 1 % Neutrophils # 5.2 (1.3-7.7) k/uL Lymphocytes # 1.8 (1.0-4.8) k/uL Monocytes # 0.5 (0-1.0) k/uL Eosinophils # 0.2 (0-0.7) k/uL Basophils # 0.0 (0-0.2) k/uL Sodium 139 (137-145) mmol/L Potassium 4.0 (3.5-5.1) mmol/L Chloride 105 (98-107) mmol/L Carbon Dioxide 27 (22-30) mmol/L Anion Gap 7 mmol/L BUN 18 H (7-17) mg/dL Creatinine 0.83 (0.52-1.04) mg/dL Est GFR (CKD-EPI)AfAm 79 (>60 ml/min/1.73 sqM) Est GFR (CKD-EPI)NonAf 69 (>60 ml/min/1.73 sqM) Glucose 88 (74-99) mg/dL Plasma Lactic Acid Vinny (0.7-2.0) mmol/L Calcium 10.0 (8.4-10.2) mg/dL Total Bilirubin 0.4 (0.2-1.3) mg/dL AST 24 (14-36) U/L ALT 14 (4-34) U/L Alkaline Phosphatase 73 (38-126) U/L Total Protein 6.8 (6.3-8.2) g/dL Albumin 4.3 (3.5-5.0) g/dL Amylase 46 (30-110) U/L Lipase 109 (23-300) U/L Urine Color Colorless Urine Appearance Clear (Clear) Urine pH 5.0 (5.0-8.0) Ur Specific Barnard 1.005 (1.001-1.035) Urine Protein Negative (Negative) Urine Glucose (UA) Negative (Negative) Urine Ketones Negative (Negative) Urine Blood Small H (Negative) Urine Nitrite Negative (Negative) Urine Bilirubin Negative (Negative) Urine Urobilinogen <2.0 (<2.0) mg/dL Ur Leukocyte Esterase Negative (Negative) Urine RBC 2 (0-5) /hpf Urine WBC 3 (0-5) /hpf Ur Squamous Epith Cells 1 (0-4) /hpf Urine Mucus Rare H (None) /hpf 07/31/24 Range/Units 17:31 WBC (3.8-10.6) k/uL RBC (3.80-5.40) m/uL Hgb (11.4-16.0) gm/dL Hct (34.0-46.0) % MCV (80.0-100.0) fL MCH (25.0-35.0) pg MCHC (31.0-37.0) g/dL RDW (11.5-15.5) % Plt Count (150-450) k/uL MPV Neutrophils % % Lymphocytes % % Monocytes % % Eosinophils % % Basophils % % Neutrophils # (1.3-7.7) k/uL Lymphocytes # (1.0-4.8) k/uL Monocytes # (0-1.0) k/uL Eosinophils # (0-0.7) k/uL Basophils # (0-0.2) k/uL Sodium (137-145) mmol/L Potassium (3.5-5.1) mmol/L Chloride (98-107) mmol/L Carbon Dioxide (22-30) mmol/L Anion Gap mmol/L BUN (7-17) mg/dL Creatinine (0.52-1.04) mg/dL Est GFR (CKD-EPI)AfAm (>60 ml/min/1.73 sqM) Est GFR (CKD-EPI)NonAf (>60 ml/min/1.73 sqM) Glucose (74-99) mg/dL Plasma Lactic Acid Vinny 0.7 (0.7-2.0) mmol/L Calcium (8.4-10.2) mg/dL Total Bilirubin (0.2-1.3) mg/dL AST (14-36) U/L ALT (4-34) U/L Alkaline Phosphatase (38-126) U/L Total Protein (6.3-8.2) g/dL Albumin (3.5-5.0) g/dL Amylase (30-110) U/L Lipase (23-300) U/L Urine Color Urine Appearance (Clear) Urine pH (5.0-8.0) Ur Specific Barnard (1.001-1.035) Urine Protein (Negative) Urine Glucose (UA) (Negative) Urine Ketones (Negative) Urine Blood (Negative) Urine Nitrite (Negative) Urine Bilirubin (Negative) Urine Urobilinogen (<2.0) mg/dL Ur Leukocyte Esterase (Negative) Urine RBC (0-5) /hpf Urine WBC (0-5) /hpf Ur Squamous Epith Cells (0-4) /hpf Urine Mucus (None) /hpf Disposition <Yamila Shelby - Last Filed: 07/31/24 16:02> Is patient prescribed a controlled substance at d/c from ED?: No Time of Disposition: 19:30 <Sriram Camacho - Last Filed: 08/12/24 15:59> Clinical Impression: Abdominal pain, Biliary colic Disposition: HOME SELF-CARE Condition: Good Instructions (If sedation given, give patient instructions): Abdominal Pain (ED) Referrals: Nonstaff,Physician [REFERRING] - 1-2 days
[2024-07-31 16:48] LABS: Appearance,Urine Clear (Clear); Bilirubin,Urine Negative (Negative); Blood,Urine Small (Negative); Color,Urine Colorless; Glucose,Urine (UA) Negative (Negative); Ketones,Urine Negative (Negative); Leukocyte Esterase,Urine Negative (Negative); Mucus,Urine Rare /hpf; Nitrite,Urine Negative (Negative); Protein,Urine Negative (Negative); RBC,Urine 2 /hpf (0-5); Specific Gravity,Urine 1.005 (1.001-1.035); Squamous Epithelial Cell,Urine 1 /hpf (0-4); Urobilinogen,Urine <2.0 mg/dL (<2.0); WBC,Urine 3 /hpf (0-5)
[2024-07-31] MEDS: KETOROLAC 15 MG/ML 1 ML VIAL IVP STA (18:10)
[2024-07-31 18:19] LABS: Basophils % (A) 1 %; Eosinophils # (A) 0.2 k/uL (0-0.7); Eosinophils % (A) 2 %; HCT 41.3 % (34.0-46.0); HGB 13.5 gm/dL (11.4-16.0); Lymphocytes # (A) 1.8 k/uL (1.0-4.8); Lymphocytes % (A) 23 %; MCH 31.7 pg (25.0-35.0); MCHC 32.7 g/dL (31.0-37.0); MCV 96.9 fL (80.0-100.0); Mean Platelet Volume 8.2; Monocytes # (A) 0.5 k/uL (0-1.0); Monocytes % (A) 6 %; Neutrophils # (A) 5.2 k/uL (1.3-7.7); Neutrophils % (A) 66 %; Platelet Count 219 k/uL (150-450); RBC 4.26 m/uL (3.80-5.40); RDW 12.2 % (11.5-15.5); WBC 7.9 k/uL (3.8-10.6)
--- NOTE | 2024-07-31 18:23 | CT ---
EXAMINATION TYPE: CT abdomen pelvis wo con DATE OF EXAM: 07/31/2024 COMPARISON: INDICATION: right sided abdominal pain DLP: 574 mGycm, Automated exposure control for dose reduction was used. CONTRAST: mL of . Study performed without Oral Contrast TECHNIQUE: Axial images were obtained from above the diaphragm to the pubic rami in the axial plane a t 5 mm thick sections. Reconstructed images are reviewed on the computer in the coronal plane. FINDINGS: Limited CT sections are obtained the lung bases. The lung bases are clear. There is a small hiatal hernia present. CT ABDOMEN: Liver: Normal Spleen: Normal Pancreas: Normal Adrenal glands: The adrenal glands are normal. Gallbladder: Several small gallstones are present. Kidneys: No masses are evident. No hydronephrosis is present. No cysts are present. No renal stone s are evident. Aorta: Vascular calcification is within the aorta. Inferior vena cava: Normal. CT PELVIS: Loops of bowel within the abdomen and pelvis are normal. Diverticular disease is present. Acute dive rticulitis. Study is lateral contrast limiting evaluation Appendix: Normal as visualized. Urinary bladder: Normal. Genitourinary structures: Uterus is normal. Adnexa are normal. Osseous structures: No suspicious lytic or sclerotic lesions. IMPRESSION: 1. Diverticulosis without acute diverticulitis. 2. Cholelithiasis. 3. Small hiatal hernia. 4. Normal appendix [facility], , 07/31/2024 6:21 PM
[2024-07-31 18:28] LABS: ALT 14 U/L (4-34); AST 24 U/L (14-36); African American GFR (CKD) 79 (>60 ml/min/1.73 sqM); Albumin 4.3 g/dL (3.5-5.0); Alkaline Phosphatase 73 U/L (38-126); Amylase 46 U/L (30-110); Anion Gap 7 mmol/L; Blood Urea Nitrogen 18 mg/dL (7-17); Carbon Dioxide 27 mmol/L (22-30); Chloride 105 mmol/L (98-107); Glucose 88 mg/dL (74-99); Lipase 109 U/L (23-300); Non-African American GFR(CKD) 69 (>60 ml/min/1.73 sqM); Sodium 139 mmol/L (137-145); Total Bilirubin 0.4 mg/dL (0.2-1.3); Total Protein 6.8 g/dL (6.3-8.2)
--- NOTE | 2024-07-31 19:12 | US ---
EXAMINATION TYPE: US gallbladder DATE OF EXAM: 07/31/2024 COMPARISON: CT 07/31/2024 CLINICAL INDICATION: Female, 78 years old with history of RUQ pain; Patient states RUQ pain for a few days. TECHNIQUE: Multiple sonographic images of the right upper quadrant are obtained. FINDINGS: EXAM MEASUREMENTS: Liver Length: 10.6 cm Gallbladder Wall: 0.2 cm CBD: 0.5 cm Right Kidney: 8.8 x 4.0 x 4.2 cm MERCHANDISING TEAM LEAD NOTES:Limited due to overlying bowel gas and patient body habitus Pancreas: Obscured by bowel gas Liver: There is a 0.9 x 0.8 x 0.9cm simple appearing cystic area seen in the right liver lobe. Gallbladder: There is a 0.5cm echogenic foci seen within the gallbladder neck Evidence for sonographic Sanchez's sign: No CBD: wnl Right Kidney: No hydronephrosis or masses seen as best visualized today IMPRESSION: Cholelithiasis without evidence of acute cholecystitis. [facility], , 07/31/2024 7:09 PM
[2024-07-31] MEDS: IBUPROFEN 600 MG STARTER PACK 4 TAB BTL PO STA (19:43)
[2024-07-31] MEDS: ONDANSETRON 4 MG ODT STARTER PACK 2 TAB BTL PO STA (19:44)
[2024-07-31] MEDS: ACET/COD 300 MG/30 MG STARTER PACK 6 TAB BTL PO STA (19:44)
[2024-07-31 19:50] VITALS: BP 148/65; PULSE 64; TEMP 98.6
== END 2024-07-31 19:48 | disposition home or self-care (01) ==
LOC: EC 15:39
CPT/HCPCS: 36415; 74176; 76705; 80053; 81001; 82150; 83605; 83690; 85025; 96374; 99284

== ENCOUNTER 2024-12-27 05:56 | Day surgery (SDC) | payer MEDICARE ==
[2024-12-25 12:27] VITALS: BMI 29.1
[2024-12-27] MEDS: IV FLUID CONTINUATION 1,000 ML IV ONE ×3 (06:20→13:09)
[2024-12-27] MEDS: HEPARIN SODIUM,PORCINE 5,000 UNIT/ML 1 ML VIAL SQ PRN (06:56)
[2024-12-27] MEDS: ONDANSETRON 4 MG/2 ML VIAL IVP ONE (06:56)
[2024-12-27] MEDS: FAMOTIDINE 20 MG/2 ML VIAL IV STA (06:57)
[2024-12-27] MEDS: DEXAMETHASONE SOD PHOSPHATE 4 MG/ML 1 ML VIAL IV ONE (06:57)
[2024-12-27] MEDS: ACETAMINOPHEN TAB 500 MG TAB PO PRN (06:58)
[2024-12-27] MEDS: LACTATED RINGERS 1,000 ML IV SCH (06:58)
[2024-12-27 07:00] LABS: Basophils # (A) 0.1 k/uL (0-0.2); Basophils % (A) 1 %; Eosinophils # (A) 0.3 k/uL (0-0.7); Eosinophils % (A) 5 %; HCT 39.9 % (34.0-46.0); HGB 13.2 gm/dL (11.4-16.0); Lymphocytes # (A) 2.4 k/uL (1.0-4.8); Lymphocytes % (A) 37 %; MCH 31.6 pg (25.0-35.0); MCHC 33.1 g/dL (31.0-37.0); MCV 95.5 fL (80.0-100.0); Mean Platelet Volume 8.4; Monocytes # (A) 0.4 k/uL (0-1.0); Monocytes % (A) 6 %; Neutrophils # (A) 3.2 k/uL (1.3-7.7); Neutrophils % (A) 48 %; Platelet Count 198 k/uL (150-450); RBC 4.18 m/uL (3.80-5.40); WBC 6.6 k/uL (3.8-10.6)
[2024-12-27 07:16] LABS: African American GFR (CKD) 69 (>60 ml/min/1.73 sqM); Anion Gap 9 mmol/L; Blood Urea Nitrogen 26 mg/dL (7-17); Calcium 9.5 mg/dL (8.4-10.2); Carbon Dioxide 24 mmol/L (22-30); Chloride 108 mmol/L (98-107); Glucose 92 mg/dL (74-99); Non-African American GFR(CKD) 60 (>60 ml/min/1.73 sqM); Potassium 4.2 mmol/L (3.5-5.1); Sodium 141 mmol/L (137-145)
[2024-12-27] MEDS ORDERED: LIDOCAINE 1% INJ 10MG/ML (20 ML MDV) ONE (07:33)
[2024-12-27] MEDS ORDERED: PHENYLEPHRINE-0.9% NACL SYG 1,000 MCG/10 ML SYRINGE ONE (07:33)
[2024-12-27] MEDS ORDERED: SUCCINYLCHOLINE CHLORIDE 200 MG/10 ML VIAL IV ONE (07:33)
[2024-12-27] MEDS ORDERED: ROCURONIUM 10 MG/ML (5 ML VIAL) IV ONE (07:33)
[2024-12-27] MEDS ORDERED: GLYCOPYRROLATE 0.2 MG/ML 2 ML VIAL ONE (07:33)
[2024-12-27] MEDS ORDERED: NEOSTIGMINE 1 MG/ML 10 ML VIAL ONE (07:33)
[2024-12-27] MEDS ORDERED: fentaNYL (PF) 50 MCG/ML 2 ML AMP ONE (07:33)
[2024-12-27] MEDS ORDERED: MIDAZOLAM 2 MG/2 ML VIAL ONE (07:33)
[2024-12-27] MEDS ORDERED: PROPOFOL 10 MG/ML 20 ML VIAL IV ONE (07:33)
[2024-12-27] MEDS ORDERED: DEXAMETHASONE SOD PHOSPHATE 4 MG/ML 1 ML VIAL ONE (07:33)
[2024-12-27] MEDS: BUPIVACAINE (PF) 0.25% 30 ML VIAL SQ ONE ×2 (07:58)
[2024-12-27 08:38] VITALS: TEMP 97
--- NOTE | 2024-12-27 08:46 | P.OP ---
Date of Procedure: 12/27/24 Procedure(s) Performed: PREOPERATIVE DIAGNOSIS: Chronic cholecystitis POSTOPERATIVE DIAGNOSIS: Same PROCEDURE: Laparoscopic cholecystectomy SURGEON: Yoko EBL: Minimal see anesthesia record ANESTHESIA: Gen. COMPLICATIONS: None OPERATIVE PROCEDURE: The patient was brought and placed on the operating room table in the supine position. The patient was placed under general anesthesia at that time. The abdomen was prepped and draped in the usual sterile fashion. A small vertical infraumbilical incision was made. The fascia was grasped with the Christy forceps. The fascia was retracted anteriorly. The Veress needle was advanced into the peritoneal cavity. The saline drop test was normal. Insufflation took place up to 15 mmHg. A 5 mm optical trocar was advanced and the peritoneal cavity. 2 additional 5 mm trochars were placed in the right upper quadrant under direct visualization. A 12 mm trocar was advanced into the epigastric incision site. The gallbladder was retracted superiorly and laterally. The peritoneum overlying the infundibulum was bluntly dissected. The patient's cystic duct was visualized. The junction between the cystic duct common and hepatic duct was identified. The critical view of safety was achieved after blunt dissection. The cystic duct was then divided after placement of 3 12 mm clips on the patient's side and one on the specimen side. The cystic artery was identified and clipped as well. A small vessel was seen along the gallbladder fossa and clipped as well. The gallbladder was then removed from the liver bed using electrocautery. The gallbladder was then removed from the epigastric trocar site with an Endo Catch bag. The gallbladder fossa was irrigated with saline. There was no evidence of any bleeding or biliary drainage seen. The fascia at the 12 millimeter site was closed using a Shaquille-Nydia 0 Vicryl stitch. The trochars were then removed. The skin at all 4 sites was closed using a 4-0 Monocryl stitch. Skin glue was utilized on the incision sites. At the end of this procedure the sponge and needle counts were correct. DISPOSITION: Stable to the recovery room
[2024-12-27 08:48] VITALS: RESP 16
[2024-12-27] MEDS: LACTATED RINGERS 1,000 ML IV ONE (08:50)
[2024-12-27] MEDS: HYDROmorphone 0.5 MG/0.5 ML SYRINGE IVP PRN (08:59)
[2024-12-27] MEDS ORDERED: ACETAMINOPHEN TAB 325 MG TAB PO SCH (12:00)
[2024-12-27 14:31] VITALS: BP 118/63; PULSE 52
[2024-12-27] MEDS ORDERED: IBUPROFEN 600 MG TAB PO SCH (15:00)
== END 2024-12-27 14:49 | disposition home or self-care (01) ==
LOC: OR 05:56
PROVIDERS: ATTEND Surgery
DX: K81.1 Chronic cholecystitis (principal); E78.5 Hyperlipidemia, unspecified; M19.90 Unspecified osteoarthritis, unspecified site; F41.9 Anxiety disorder, unspecified; K21.9 Gastro-esophageal reflux disease without esophagitis; Z79.1 Long term (current) use of non-steroidal anti-inflammatories (NSAID); Z79.899 Other long term (current) drug therapy; Z98.890 Other specified postprocedural states
CPT/HCPCS: 47562; 88304; 80048; 85025; J2250; J0330; J1644; J1100; J2710; J0690; J2405; J2003; J3010; J3490; J2704; J1171; J2371; J0665; J1596